=== PATIENT | male | born 1965 | race Caucasian/White ===

== ENCOUNTER 2018-03-05 16:52 | Emergency (ER) | payer OTHER ==
[~2018-03-05] VITALS: Wt 83.8 kg
[2018-03-05] MEDS ORDERED: KETOROLAC 15 MG INJ IV STA (17:04)
[2018-03-05] MEDS ORDERED: ONDANSETRON 4 MG INJ IV STA (17:04)
[2018-03-05] MEDS ORDERED: SOD CHLORIDE 0.9% 1,000 ML IV STA (17:04)
--- NOTE | 2018-03-05 18:37 | ERD ---
ER Documentation Chief Complaint Chief Complaint ruq pain HPI 52-year-old man presents with sharp nonexertional nonradiating right upper quadrant and epigastric discomfort associated with some nausea but no vomiting or diarrhea. He denies precipitating or alleviating factors and states the pain began gradually this afternoon and has been getting worse. Patient denies trauma, no chest pain or shortness of breath, no dysuria or hematuria. ROS All systems reviewed and are negative except as per history of present illness. Allergies Allergies: Coded Allergies: No Known Allergy (Unverified , 03/05/18) PMhx/Soc None Medical and Surgical Hx: pt denies Medical Hx Hx Alcohol Use: Yes (quit 17 yrs ago) Hx Substance Use: No Hx Tobacco Use: No Smoking Status: Never smoker FmHx Family History: No diabetes Physical Exam Vitals Vital Signs Date Temp Pulse Resp B/P (MAP) Pulse Ox O2 O2 Flow FiO2 Time Delivery Rate 03/05/18 97.2 74 20 195/114 99 16:54 (141) Physical Exam Const: Mild discomfort, afebrile Head: Atraumatic Eyes: Normal Conjunctiva ENT: Normal External Ears, Nose and Mouth. Neck: Full range of motion. No meningismus. Resp: Clear to auscultation bilaterally Cardio: Regular rate and rhythm, no murmurs Abd: Right upper quadrant epigastric tenderness to touch with voluntary guarding, no rigidity or rebound, no McBurney's point tenderness Skin: No petechiae or rashes Back: No midline or flank tenderness Ext: No cyanosis, or edema Neur: Awake and alert x3, no focal deficits or facial asymmetry Psych: Normal Mood and Affect Result Diagram: 03/05/18 1713 03/05/18 1713 Results 24 hrs Laboratory Tests Test 03/05/18 17:13 White Blood Count 9.3 10^3/ul Red Blood Count 5.32 10^6/ul Hemoglobin 15.6 g/dl Hematocrit 45.5 % Mean Corpuscular Volume 85.5 fl Mean Corpuscular Hemoglobin 29.3 pg Mean Corpuscular Hemoglobin Concent 34.3 g/dl Red Cell Distribution Width 14.5 % Platelet Count 232 10^3/UL Mean Platelet Volume 9.9 fl Immature Granulocytes % 0.100 % Neutrophils % 53.5 % Lymphocytes % 36.0 % Monocytes % 7.0 % Eosinophils % 2.5 % Basophils % 0.9 % Nucleated Red Blood Cells % 0.0 /100WBC Immature Granulocytes # 0.010 10^3/ul Neutrophils # 5.0 10^3/ul Lymphocytes # 3.4 10^3/ul Monocytes # 0.7 10^3/ul Eosinophils # 0.2 10^3/ul Basophils # 0.1 10^3/ul Nucleated Red Blood Cells # 0.0 10^3/ul Sodium Level 141 mmol/L Potassium Level 3.8 mmol/L Chloride Level 102 mmol/L Carbon Dioxide Level 28 mmol/L Anion Gap 11 Blood Urea Nitrogen 16 mg/dl Creatinine 0.81 mg/dl Est Glomerular Filtrat Rate mL/min > 60 mL/min Glucose Level 103 mg/dl Calcium Level 9.2 mg/dl Total Bilirubin 0.2 mg/dl Direct Bilirubin 0.00 mg/dl Indirect Bilirubin 0.2 mg/dl Aspartate Amino Transf (AST/SGOT) 27 IU/L Alanine Aminotransferase (ALT/SGPT) 27 IU/L Alkaline Phosphatase 81 IU/L Total Protein 7.1 g/dl Albumin 4.1 g/dl Globulin 3.00 g/dl Albumin/Globulin Ratio 1.36 Lipase 66 U/L Current Medications Medications Dose Sig/Miki Start Time Status Last (Trade) Ordered Route PRN Stop Time Admin Dose Reason Admin Sodium 1,000 ml @ Q1H STAT 03/05/18 DC 03/05/18 Chloride 1,000 mls/hr IV 17:04 03/05/18 17:17 18:03 Ondansetron 4 mg ONCE STAT 03/05/18 DC 03/05/18 HCl (Zofran IV 17:04 03/05/18 17:17 Inj) 17:06 Ketorolac 15 mg ONCE STAT 03/05/18 DC 03/05/18 Tromethamine IV 17:04 03/05/18 17:17 (Toradol) 17:06 Procedures/MDM IV line was established patient was placed on telemetry monitor rhythm strip revealed a sinus rhythm at about 80 bpm with upright P and T waves. Patient was afebrile I administered 1 L normal saline IV, Toradol 15 mg IV, Zofran 4 mg IV x1 Right upper quadrant abdominal ultrasound was performed concerning for acute cholecystitis given the gallbladder wall thickening and gallstone CBC and electrolytes were normal, liver function tests were normal, coags have also been ordered results are pending I will follow-up. I spoke to surgeon production specialist Dr. Naranjo who agreed with the patient's ED management and workup and agreed to consult the patient for possible cholecystectomy Patient will be admitted to [facility] [place]. Departure Diagnosis: Primary Impression: Acute cholecystitis Condition: VIDA Durand MD Mar 05, 2018 18:37
[2018-03-05] MEDS ORDERED: PIPER-TAZO 3.375 GM IV (PMX) 100 ML IVPB ONE (19:00)
[2018-03-05 20:45] VITALS: BP 143/95; PULSE 70; RESP 18
== END 2018-03-05 20:53 | disposition short-term general hospital (02) ==
LOC: E/R 16:52
DX: K81.0 Acute cholecystitis (principal)
CPT/HCPCS: 36415; 76705; 80053; 83690; 85025; 85610; 85730; 96374; 96375; J1885; J2405; J2543; J7030; Z7502